=== PATIENT | female | born 1960 | race Caucasian/White ===

== ENCOUNTER 2019-02-18 16:57 | Emergency (ER) | payer MEDICAID ==
[~2019-02-18] VITALS: Ht 167.6 cm; Wt 59.0 kg
[2019-02-18 17:16] VITALS: BP 99/69
--- NOTE | 2019-02-18 18:28 | NUR ---
PT AMBULATES TO BED 1
--- NOTE | 2019-02-18 18:35 | NUR ---
PT PRESENTED TO THE ED WITH THE CHIEF C/O SPIDER BITE ON HER HEAD 2 DAYS AGO. PT NOTED WITH SWOLLEN AND REDNESS ON 2 SPOTS ON HER RIGHT BACK OF HEAD. CRUSTS PRESENTS ON THE BITEN SITE. PT SAYS" I SCRATCHED IT AND LIQUID CAME OUT AND DRIED UP." DENIES ANY PAIN OR ITCHINESS AT THIS TIME. PT TOOK ADVIL AROUND 10 AM THIS MORNING. DENIES FEVER. DENIES ANY OTHER P[ROBLEM AT THIS TIME. ER AWARE.
--- NOTE | 2019-02-18 19:07 | NUR ---
REPORT GIVEN TO PARALEGAL SUPERVISOR RN.
[2019-02-18] MEDS ORDERED: IBUPROFEN 600 MG TAB PO ONE (19:15)
--- NOTE | 2019-02-18 19:48 | NUR ---
Patient discharged with v/s stable. Written and verbal after care instructions given and explained. Patient alert, oriented and verbalized understanding of instructions. Ambulatory with steady gait. All questions addressed prior to discharge. ID band removed. Patient advised to follow up with PMD. Rx of KETOCONAZLOE, IBUPROFEN, KEFLEX given. Patient educated on indication of medication including possible reaction and side effects. Opportunity to ask questions provided and answered.
[2019-02-18 19:49] VITALS: BP 111/72
== END 2019-02-18 19:48 | disposition home or self-care (01) ==
LOC: MED 16:57
DX: L21.9 Seborrheic dermatitis, unspecified (principal); L73.9 Follicular disorder, unspecified; F17.210 Nicotine dependence, cigarettes, uncomplicated
CPT/HCPCS: 99283

== ENCOUNTER 2019-04-15 15:40 | Emergency (ER) | payer MEDICAID ==
[~2019-04-15] VITALS: Ht 165.1 cm; Wt 58.1 kg
[2019-04-15 15:47] VITALS: BP 141/99
--- NOTE | 2019-04-15 15:56 | NUR ---
PT AMBULATED TO ER BED 06
--- NOTE | 2019-04-15 15:59 | NUR ---
58/F BIB SELF C/O MULTIPLE ABCESSES TO RIGHT ARM PIT, AND 1 TO LEFT ARM PIT X4 DAYS AFTER SHAVING W/ DIRTY RAZOR. PATIENT STATES PAIN OF 8/10 AT THIS TIME; PATIENT POSITIONED FOR COMFORT; HOB ELEVATED; BEDRAILS UP X2; BED DOWN. ER MD MADE AWARE OF PT STATUS.
[2019-04-15] MEDS ORDERED: KETOROLAC 30 MG/ML VIAL IM ONE (16:10)
[2019-04-15] MEDS ORDERED: CLINDAMYCIN 600 MG/4 ML VIAL IM ONE (16:10)
[2019-04-15] MEDS ORDERED: LIDOCAINE 1% 500 MG/50 ML VIAL INJ SCH ×2 (16:10→17:10)
[2019-04-15] MEDS ORDERED: LIDOCAINE MPF 1% 5mL VIAL ONE ×2 (16:26→17:22)
[2019-04-15 17:27] VITALS: BP 136/89
--- NOTE | 2019-04-15 17:27 | NUR ---
Patient discharged with v/s stable. Written and verbal after care instructions given and explained. Patient alert, oriented and verbalized understanding of instructions. Ambulatory with steady gait. All questions addressed prior to discharge. ID band removed. Patient advised to follow up with PMD. Rx of IBUPROFEN & AMOXICILLIN given. Patient educated on indication of medication including possible reaction and side effects. Opportunity to ask questions provided and answered.
== END 2019-04-15 17:27 | disposition home or self-care (01) ==
LOC: MED 15:40
DX: L73.2 Hidradenitis suppurativa (principal); F17.200 Nicotine dependence, unspecified, uncomplicated
CPT/HCPCS: 10060; 96372; 99283; J1885; J2001; J3490

== ENCOUNTER 2019-04-15 20:30 | Emergency (ER) | payer MEDICAID ==
[~2019-04-15] VITALS: Ht 165.1 cm; Wt 54.4 kg
[2019-04-15 20:35] VITALS: BP 131/90
--- NOTE | 2019-04-15 20:35 | NUR ---
TO BED # 03 AMBULATORY
--- NOTE | 2019-04-15 20:58 | NUR ---
PT TO ED WITH C/O RT ARM NUMBESS S/P WRAP PLACEMENT FROM I&D THIS AFTERNOON. PER PT "THEY TOLD ME TO TAKE IT OFF IF IT WAS TOO TIGHT AND I THINK IT IS TOO TIGHT SO NOW MY ARM IS NUMB" PT HAS +ROM. +CMS. PT INTO BED, PENDING MD HSU.
[2019-04-15 21:12] VITALS: BP 131/90
--- NOTE | 2019-04-15 21:13 | NUR ---
Patient discharged with v/s stable. Written and verbal after care instructions given and explained. Patient verbalized understanding. Ambulatory with steady gait. All questions addressed prior to discharge. Advised to follow up with PMD.
== END 2019-04-15 21:12 | disposition home or self-care (01) ==
LOC: MED 20:30
DX: R20.0 Anesthesia of skin (principal); Z48.01 Encounter for change or removal of surgical wound dressing
CPT/HCPCS: 99282